=== PATIENT | female | born 1940 | race Caucasian/White ===

== ENCOUNTER 2016-07-08 09:58 | Day surgery (SDC) | payer MEDICARE ==
[~2016-07-08 09:58] MED LIST: LACTATED RINGERS 1,000 ML IV SCH
[2016-07-08] MEDS ORDERED: IV START KIT ONE (10:31)
[2016-07-08] MEDS ORDERED: LACTATED RINGERS 1,000 ML ONE (10:32)
[2016-07-08] MEDS ORDERED: FENTANYL 100 MCG/2 ML VIAL ONE (10:57)
[2016-07-08] MEDS ORDERED: PROPOFOL 20 ML IV ONE (10:57)
== END 2016-07-08 12:40 | disposition home or self-care (01) ==
LOC: SDC 09:58
PROVIDERS: ATTEND Internal Medicine Gastroenterology
PROC: 0DJD8ZZ Inspection of Lower Intestinal Tract, Via Natural or Artificial Opening Endoscopic (ICD-10-PCS; principal; 2016-07-08)
DX: Z12.11 Encounter for screening for malignant neoplasm of colon (principal); Z86.010 Personal history of colon polyps; Z80.0 Family history of malignant neoplasm of digestive organs; Z87.891 Personal history of nicotine dependence; E78.5 Hyperlipidemia, unspecified; M81.0 Age-related osteoporosis without current pathological fracture; R07.89 Other chest pain; H40.9 Unspecified glaucoma; M79.7 Fibromyalgia; Z88.0 Allergy status to penicillin
CPT/HCPCS: J3010; J7120; G0105